=== PATIENT | male | born 1970 | race Caucasian/White ===

== ENCOUNTER 2021-06-25 23:40 | Day surgery (SDCO) | payer OTHER ==
[~2021-06-25] VITALS: Ht 182.9 cm; Wt 102.1 kg
[2021-06-26 02:49] LABS: BASOPHIL 0.6 % (0-2); BILIRUBIN NEGATIVE (NEGATIVE); BLOOD NEGATIVE Ery/uL (NEGATIVE); CLARITY CLEAR (CLEAR); COLOR YELLOW (YELLOW); EOSINOPHIL 1.8 % (0-5); GLUCOSE (U) NORMAL (NORMAL); HCT 44.1 % (42.0-52.0); HGB 14.5 g/dl (13.2-18.0); LEUKOCYTES NEGATIVE Leu/uL (NEGATIVE); LYMPHOCYTE 24.2 % (15-48); MCH 28.5 pg (25.0-31.0); MCHC 32.9 g/dL (32.0-36.0); MCV 86.6 fL (78.0-100.0); MONOCYTE 10.2 % (0-12); MPV 10.5 fL (6.0-9.5); NEUTROPHIL 62.8 % (41-80); NITRITE NEGATIVE (NEGATIVE); NRBC 0; PLT 166 K/uL (150-400); PROTEIN NEGATIVE (NEGATIVE); RBC 5.09 M/uL (4.70-6.00); RDW 13.7 % (11.5-14.0); SPECIFIC GRAVITY 1.025 (1.001-1.030); UROBILINOGEN 0.2 mg/dL (0.2-1.0); WBC 5.1 K/uL (4.0-10.5)
[2021-06-26 03:02] LABS: BUN/CREAT RATIO (CALC) 17.7 RATIO; CREATININE 1.13 mg/dL (0.67-1.17)
[2021-06-26] MEDS ORDERED: COZAAR100 MG PO (08:12)
[2021-06-27] MEDS ORDERED: NORCO 5-325 TA1 EACH PO (11:19)
[2021-06-27] MEDS ORDERED: COZAAR100 MG PO (11:19)
[2021-06-27] MEDS ORDERED: MIRALAX17 GM PO (11:28)
[2021-06-27] MEDS ORDERED: SENOKOT8.6 MG PO (11:28)
== END 2021-06-27 12:02 | disposition home or self-care (01) ==
LOC: FER 23:40 → FMS 06-26 04:42
PROVIDERS: Internal Medicine; ADMIT Internal Medicine
DX: M54.41 Lumbago with sciatica, right side (principal); I10 Essential (primary) hypertension; M48.07 Spinal stenosis, lumbosacral region; M25.78 Osteophyte, vertebrae; M54.17 Radiculopathy, lumbosacral region; N40.0 Benign prostatic hyperplasia without lower urinary tract symptoms; N20.0 Calculus of kidney; Z87.891 Personal history of nicotine dependence; Z79.899 Other long term (current) drug therapy; Z20.822 Contact with and (suspected) exposure to COVID-19
CPT/HCPCS: 36415; 72131; 80048; 81003; 85025; G0378; J1170; J1650; J1885; J2405; U0002